=== PATIENT | female | born 1960 | race American Indian/Alaskan Native ===

== ENCOUNTER 2016-04-14 09:11 | Emergency (ER) | payer MEDICARE ==
[2016-04-14 09:20] VITALS: BP 121/77
--- NOTE | 2016-04-14 10:21 | Emergency Department Report ---
ED General Adult HPI - General Chief complaint: Extremity Injury, Upper Stated complaint: KNOT RISK/NECK PAIN Time Seen by Provider: 04/14/16 10:16 Source: patient Mode of arrival: Ambulatory Limitations: No Limitations - History of Present Illness Initial comments: 55-year-old female comes in with complaint of a cyst like structure on her right hand 2 weeks. As well as she reports that she has neck pain 1 week. She denies any trauma to her neck no recent MVAs no recent falls. She does not have a primary care provider she is followed by [facility] who prescribes her Abilify which she says she takes every day. - Related Data Home Medications Medication Instructions Recorded Confirmed Last Taken ARIPiprazole [Abilify TAB] 5 mg PO DAILY 11/29/13 11/29/13 11/28/13 Ranitidine (Nf) [Zantac (Nf)] 150 mg PO BID 11/29/13 11/29/13 11/28/13 Previous Rx's Medication Instructions Recorded Last Taken Type Omeprazole [PriLOSEC] 20 mg PO QDAY #30 capsule. 11/29/13 Unknown Rx Promethazine [Phenergan TAB] 25 mg PO Q6H PRN #30 tablet 11/29/13 Unknown Rx traMADol [Ultram 50 MG tab] 50 mg PO Q6HR PRN #30 tablet 11/29/13 Unknown Rx Ibuprofen [Motrin 600 MG tab] 600 mg PO Q8H PRN #30 tablet 04/14/16 Unknown Rx Allergies Allergy/AdvReac Type Severity Reaction Status Date / Time No Known Allergies Allergy Unverified 09/07/13 18:24 ED Review of Systems ROS: Stated complaint: KNOT RISK/NECK PAIN Other details as noted in HPI Musculoskeletal: myalgia, other (cystlike structure on the right wrist) ED Past Medical Hx - Past Medical History Previous Medical History?: Yes Hx Kidney Stones: Yes - Surgical History Past Surgical History?: Yes Additional Surgical History: - Social History Smoking Status: Current Every Day Smoker Substance Use Type: Non Opiate Pain - Medications Home Medications: Home Medications Medication Instructions Recorded Confirmed Last Taken Type ARIPiprazole [Abilify TAB] 5 mg PO DAILY 11/29/13 11/29/13 11/28/13 History Omeprazole [PriLOSEC] 20 mg PO QDAY #30 capsule. 11/29/13 Unknown Rx Promethazine [Phenergan TAB] 25 mg PO Q6H PRN #30 tablet 11/29/13 Unknown Rx Ranitidine (Nf) [Zantac (Nf)] 150 mg PO BID 11/29/13 11/29/13 11/28/13 History traMADol [Ultram 50 MG tab] 50 mg PO Q6HR PRN #30 tablet 11/29/13 Unknown Rx Ibuprofen [Motrin 600 MG tab] 600 mg PO Q8H PRN #30 tablet 04/14/16 Unknown Rx ED Physical Exam - General Limitations: No Limitations - Head Head exam: Present: atraumatic, normocephalic - Neck Neck exam: Present: normal inspection, tenderness, full ROM, other (patient has paracervical tenderness). Absent: lymphadenopathy, thyromegaly - Expanded Upper Extremity Exam Right Hand Wrist exam: Present: full ROM, tenderness, swelling (cyst like structure). Absent: normal inspection ED Course Vital Signs 04/14/16 09:17 Temperature 98.3 F Pulse Rate 92 H Respiratory 18 Rate Blood Pressure 121/77 O2 Sat by Pulse 98 Oximetry ED Medical Decision Making - Medical Decision Making Patient's been evaluated by this provider in fast track. Discussed with patient that cyst like structures again Frank cyst. That we would need to refer her to orthopedic surgery for treatment. As well as her paracervical tenderness without trauma we will refer her to a general practitioner as well as place on ibuprofen. Patient verbalized understanding. Critical care attestation.: If time is entered above; I have spent that time in minutes in the direct care of this critically ill patient, excluding procedure time. ED Disposition Clinical Impression: Ganglion cyst of dorsum of right wrist, Arthralgia, cervical spine Disposition: DISCHARGED TO HOME OR SELFCARE Is pt being admited?: No Does the pt Need Aspirin: No Condition: Stable Instructions: Cervical Sprain (ED) Additional Instructions: Take pain medication as prescribed follow up with a primary care provider that we refer you to. Prescriptions: Ibuprofen [Motrin 600 MG tab] 600 mg PO Q8H PRN #30 tablet PRN Reason: Pain Referrals: PRIMARY CARE, [Primary Care Provider] - 3-5 Days TIEN MORALES MD [Staff Physician] - 3-5 Days JILLIAN CAMPOS MD [Staff Physician] - 3-5 Days Forms: Work/School Release Form(ED)
== END 2016-04-14 10:36 | disposition home or self-care (01) ==
LOC: ED 09:11
DX: M67.431 Ganglion, right wrist (principal); M54.2 Cervicalgia; F17.200 Nicotine dependence, unspecified, uncomplicated
CPT/HCPCS: 99282

== ENCOUNTER 2016-07-15 23:09 | Emergency (ER) | payer MEDICARE ==
[2016-07-16 00:03] LABS: Basophils % (Auto) 0.3 % (0.0-1.8); Eosinophils % (Auto) 0.9 % (0.0-4.3); Hematocrit 42.7 % (30.3-42.9); Hemoglobin 14.3 gm/dl (10.1-14.3); Mean Corpuscular HGB Conc 34 % (30-34); Mean Corpuscular Hemoglobin 30 pg (28-32); Mean Corpuscular Volume 90 fl (79-97); Platelet Count 127 K/mm3 (140-440); Red Blood Count 4.76 M/mm3 (3.65-5.03); Red Cell Distribution Width 13.2 % (13.2-15.2); White Blood Count 6.6 K/mm3 (4.5-11.0)
[2016-07-16 00:18] LABS: Alanine Aminotransferase 46 units/L (7-56); Albumin/Globulin Ratio 0.8 %; Alkaline Phosphatase 79 units/L (35-129); BUN/Creatinine Ratio 21.66; Blood Urea Nitrogen 13 mg/dL (7-17); Calcium 9.2 mg/dL (8.4-10.2); Carbon Dioxide 27 mmol/L (22-30); Chloride 101.1 mmol/L (98-107); Glucose 96 mg/dL (65-100); Lipase 26 units/L (13-60); Potassium 4.1 mmol/L (3.6-5.0); Sodium 139 mmol/L (137-145); Total Protein 8.9 g/dL (6.3-8.2)
[2016-07-16 00:19] LABS: Anion Gap 15 mmol/L
[2016-07-16 01:47] LABS: Bacteria,Urine 2+ /HPF (Negative); Bilirubin,Urine NEG (Negative); Blood,Urine NEG (Negative); Ketones,Urine NEG (Negative); Leukocyte Esterase,Urine LG (Negative); Mucus,Urine 2+ /HPF; Nitrite,Urine NEG (Negative); Urobilinogen,Urine < 2.0 mg/dL (<2.0)
--- NOTE | 2016-07-16 06:26 | Emergency Department Report ---
ED General Adult HPI - General Chief complaint: Abdominal Pain Stated complaint: BACK/ABD PAIN Time Seen by Provider: 07/16/16 06:24 Source: patient Mode of arrival: Ambulatory Limitations: No Limitations - History of Present Illness Initial comments: The patient states that she's had lower abdominal pain and a discharge for anywhere between 1 and 3 weeks. She stated 3 weeks at triage in one week to me with symptoms worsening over the past 2-3 days. She did not seek Care by a physician. She does not have a private mortgage banker safe. Patient denies fever or chills. She has had no nausea or vomiting. She does not complain of dysuria. She has some vague lower back discomfort bilaterally. -: week(s) Location: pelvis Radiation: non-radiation Quality: aching Consistency: intermittent Improves with: none Worsens with: none Associated Symptoms: denies other symptoms Treatments Prior to Arrival: none - Related Data Home Medications Medication Instructions Recorded Confirmed Last Taken ARIPiprazole [Abilify TAB] 5 mg PO DAILY 07/16/16 07/16/16 Unknown Ibuprofen [Motrin] 400 mg PO Q8H PRN 07/16/16 07/16/16 Unknown Previous Rx's Medication Instructions Recorded Last Taken Type Nitrofurantoin [place]/M-Cryst 100 mg PO Q12HR #10 capsule 07/16/16 Unknown Rx [Macrobid CAP] metroNIDAZOLE [Metrogel 1%] 1 applicatio TP QDAY #7 gel..gram. 07/16/16 Unknown Rx traMADol [Ultram] 50 mg PO Q6HR PRN #10 tablet 07/16/16 Unknown Rx Allergies Allergy/AdvReac Type Severity Reaction Status Date / Time No Known Allergies Allergy Unverified 09/07/13 18:24 ED Review of Systems ROS: Stated complaint: BACK/ABD PAIN Other details as noted in HPI Constitutional: denies: chills, fever Eyes: denies: eye pain, eye discharge, vision change ENT: denies: ear pain, throat pain Respiratory: denies: cough, shortness of breath, wheezing Cardiovascular: denies: chest pain, palpitations Endocrine: no symptoms reported Gastrointestinal: denies: abdominal pain, nausea, diarrhea Genitourinary: as per HPI, discharge. denies: urgency, dysuria Musculoskeletal: denies: back pain, joint swelling, arthralgia Skin: denies: rash, lesions Neurological: denies: headache, weakness, paresthesias Psychiatric: denies: anxiety, depression Hematological/Lymphatic: denies: easy bleeding, easy bruising ED Past Medical Hx - Past Medical History Previous Medical History?: Yes Hx GERD: Yes Hx Kidney Stones: Yes - Surgical History Past Surgical History?: Yes Additional Surgical History: - Social History Smoking Status: Current Every Day Smoker Substance Use Type: None - Medications Home Medications: Home Medications Medication Instructions Recorded Confirmed Last Taken Type ARIPiprazole [Abilify TAB] 5 mg PO DAILY 07/16/16 07/16/16 Unknown History Ibuprofen [Motrin] 400 mg PO Q8H PRN 07/16/16 07/16/[address] [place]/M-Cryst 100 mg PO Q12HR #10 capsule 07/16/16 Unknown Rx [Macrobid CAP] metroNIDAZOLE [Metrogel 1%] 1 applicatio TP QDAY #7 gel..gram. 07/16/16 Unknown Rx traMADol [Ultram] 50 mg PO Q6HR PRN #10 tablet 07/16/16 Unknown Rx ED Physical Exam - General Limitations: No Limitations General appearance: alert, in no apparent distress - Head Head exam: Present: atraumatic, normocephalic - Eye Eye exam: Present: normal appearance. Absent: scleral icterus - ENT ENT exam: Present: mucous membranes moist - Neck Neck exam: Present: normal inspection - Respiratory Respiratory exam: Present: normal lung sounds bilaterally. Absent: respiratory distress - Cardiovascular Cardiovascular Exam: Present: regular rate, normal rhythm. Absent: systolic murmur, diastolic murmur, rubs, gallop - GI/Abdominal GI/Abdominal exam: Present: soft, normal bowel sounds. Absent: distended, tenderness, guarding, rebound, rigid - Rectal Rectal exam: Present: deferred - Speculum exam: Present: normal speculum exam, other (fishy odor perhaps consistent with BV). Absent: erythema, vaginal discharge, cervical discharge, vaginal bleeding, foreign body, tissue, laceration - Extremities Exam Extremities exam: Present: normal inspection - Back Exam Back exam: Present: normal inspection. Absent: CVA tenderness (R), CVA tenderness (L), muscle spasm, paraspinal tenderness, vertebral tenderness - Neurological Exam Neurological exam: Present: alert, oriented X3, CN II-XII intact. Absent: motor sensory deficit - Psychiatric Psychiatric exam: Present: agitated, anxious - Skin Skin exam: Present: warm, dry, intact, normal color. Absent: rash ED Course Vital Signs 07/15/16 07/16/16 07/16/16 23:25 03:28 03:30 Temperature 98.2 F Pulse Rate 73 Respiratory 14 Rate Blood Pressure 122/64 Blood Pressure 125/90 [Right] O2 Sat by Pulse 99 99 99 Oximetry 07/16/16 07/16/16 07/16/16 03:34 03:40 03:50 Temperature 98 F Pulse Rate 79 Respiratory 18 Rate Blood Pressure 113/68 106/59 Blood Pressure 122/64 [Right] O2 Sat by Pulse 99 99 98 Oximetry 07/16/16 07/16/16 07/16/16 04:00 04:10 04:20 Temperature Pulse Rate Respiratory Rate Blood Pressure 103/62 45/27 114/70 Blood Pressure [Right] O2 Sat by Pulse 99 99 99 Oximetry 07/16/16 07/16/16 07/16/16 04:30 04:40 04:50 Temperature Pulse Rate Respiratory Rate Blood Pressure 114/70 112/72 112/72 Blood Pressure [Right] O2 Sat by Pulse 99 98 99 Oximetry 07/16/16 07/16/16 07/16/16 05:00 05:10 05:20 Temperature Pulse Rate Respiratory Rate Blood Pressure 112/72 112/89 112/89 Blood Pressure [Right] O2 Sat by Pulse 99 99 98 Oximetry 07/16/16 07/16/16 07/16/16 06:02 06:10 06:11 Temperature 98.2 F Pulse Rate 68 Respiratory 21 Rate Blood Pressure 112/89 112/89 Blood Pressure [Right] O2 Sat by Pulse 100 98 Oximetry 07/16/16 07/16/16 07/16/16 06:21 06:30 06:41 Temperature Pulse Rate Respiratory Rate Blood Pressure 109/70 116/74 116/74 Blood Pressure [Right] O2 Sat by Pulse 99 100 99 Oximetry - Reevaluation(s) Reevaluation #1: Patient's behavior was quite bizarre. I suppose this is consistent with her chronic schizophrenia. She asked me why I couldn't do an immediate pelvic without the assistance of a nurse. She also wanted me to close the door to examine her. I explained the process to her and the wait time. When the nurse was available the pelvic exam was performed. 07/16/16 07:58 ED Medical Decision Making - Lab Data Result diagrams: 07/15/16 23:35 07/15/16 23:35 Laboratory Results - last 24 hr 07/15/16 07/15/16 07/16/16 23:35 23:35 01:09 WBC 6.6 RBC 4.76 Hgb 14.3 Hct 42.7 MCV 90 MCH 30 MCHC 34 RDW 13.2 Plt Count 127 L Lymph % (Auto) 36.[address] [place] % (Auto) 9.4 H Eos % (Auto) 0.9 Baso % (Auto) 0.3 Lymph # 2.4 [place] # 0.6 Eos # 0.1 Baso # 0.0 Seg Neutrophils % 53.0 Seg Neutrophils # 3.5 Sodium 139 Potassium 4.1 Chloride 101.1 Carbon Dioxide 27 Anion Gap 15 BUN 13 Creatinine 0.6 L Estimated GFR > 60 BUN/Creatinine Ratio 21.66 Glucose 96 Calcium 9.2 Total Bilirubin 0.40 AST 34 ALT 46 Alkaline Phosphatase 79 Total Protein 8.9 H Albumin 4.0 Albumin/Globulin Ratio 0.8 Lipase 26 Urine Color Yellow Urine Turbidity Clear Urine pH 5.0 Ur Specific [place] 1.028 Urine Protein 30 mg/dl Urine Glucose (UA) Neg Urine Ketones Neg Urine Blood Neg Urine Nitrite Neg Urine Bilirubin Neg Urine Urobilinogen < 2.0 Ur Leukocyte Esterase Lg Urine WBC (Auto) 15.0 H Urine RBC (Auto) 7.0 U Epithel Cells (Auto) 12.0 Urine Bacteria (Auto) 2+ Calcium Oxalate Crystal 1+ Hyaline Casts 1 Urine Mucus 2+ Urine Opiates Screen Urine Methadone Screen Ur Barbiturates Screen Ur Phencyclidine Scrn Ur Amphetamines Screen U Benzodiazepines Scrn Urine Cocaine Screen U Marijuana (THC) Screen Drugs of Abuse Note 07/16/16 06:52 WBC RBC Hgb Hct MCV MCH MCHC RDW Plt Count Lymph % (Auto) [place] % (Auto) Eos % (Auto) Baso % (Auto) Lymph # [place] # Eos # Baso # Seg Neutrophils % Seg Neutrophils # Sodium Potassium Chloride Carbon Dioxide Anion Gap BUN Creatinine Estimated GFR BUN/Creatinine Ratio Glucose Calcium Total Bilirubin AST ALT Alkaline Phosphatase Total Protein Albumin Albumin/Globulin Ratio Lipase Urine Color Urine Turbidity Urine pH Ur Specific [place] Urine Protein Urine Glucose (UA) Urine Ketones Urine Blood Urine Nitrite Urine Bilirubin Urine Urobilinogen Ur Leukocyte Esterase Urine WBC (Auto) Urine RBC (Auto) U Epithel Cells (Auto) Urine Bacteria (Auto) Calcium Oxalate Crystal Hyaline Casts Urine Mucus Urine Opiates Screen Presumptive negative Urine Methadone Screen Presumptive negative Ur Barbiturates Screen Presumptive negative Ur Phencyclidine Scrn Presumptive negative Ur Amphetamines Screen Presumptive negative U Benzodiazepines Scrn Presumptive negative Urine Cocaine Screen Presumptive negative U Marijuana (THC) Screen Presumptive negative Drugs of Abuse Note Disclamer - Medical Decision Making Mild thrombocytopenia. Not clinically relevant at this time. Follow-up recommended. Critical care attestation.: If time is entered above; I have spent that time in minutes in the direct care of this critically ill patient, excluding procedure time. ED Disposition Clinical Impression: Pelvic pain in female, Thrombocytopenia Vaginitis Qualifiers: Chronicity: subacute Qualified Code(s): N76.1 - Subacute and chronic vaginitis Schizophrenia Qualifiers: Schizophrenia type: unspecified Qualified Code(s): F20.9 - Schizophrenia, unspecified Disposition: DISCHARGED TO HOME OR SELFCARE Is pt being admited?: No Does the pt Need Aspirin: No Condition: Stable Instructions: Abdominal Pain (ED), Vaginitis (ED) Additional Instructions: Follow-up with private mortgage banker safe and or health department. Follow-up with a primary care physician. Rx as directed. Prescriptions: metroNIDAZOLE [Metrogel 1%] 1 applicatio TP QDAY #[address] gel..[address] Nitrofurantoin [place]/M-Cryst [Macrobid CAP] 100 mg PO Q12HR #10 capsule traMADol [Ultram] 50 mg PO Q6HR PRN #10 tablet PRN Reason: Pain Referrals: JAZMIN MORA MD [Primary Care Provider] - 3-5 Days JOSETTE MUNIZ MD [Staff Physician] - 3-5 Days [facility] [place] [Provider Group] - 3-5 Days [facility] [Outside] - 3-5 Days Time of Disposition: 08:11
[2016-07-16 07:03] LABS: Urine Drugs of Abuse Note Disclamer
[2016-07-16] MEDS: ZITHROMAX PO ONE (08:21)
[2016-07-16] MEDS: NORCO 5/325 PO ONE (08:21)
[2016-07-16 08:35] VITALS: BP 130/84
== END 2016-07-16 08:37 | disposition home or self-care (01) ==
LOC: ED 23:09
DX: R10.2 Pelvic and perineal pain (principal); N76.1 Subacute and chronic vaginitis; D69.6 Thrombocytopenia, unspecified; F20.9 Schizophrenia, unspecified; F17.200 Nicotine dependence, unspecified, uncomplicated; K21.9 Gastro-esophageal reflux disease without esophagitis
CPT/HCPCS: 36415; 80053; 80307; 81001; 83690; 85025; 87210; 87591; 99284